=== PATIENT | male | born 1990 | race Caucasian/White ===

== ENCOUNTER 2020-09-24 10:44 | Emergency (ER) | payer MEDICAID, OTHER, SELFPAY ==
[~2020-09-24] VITALS: Ht 167.6 cm; Wt 90.0 kg
[2020-09-24 11:27] LABS: BASOPHILS % (AUTO) 1 % (0-1); EOSINOPHILS % (AUTO) 1 % (1-7); LYMPHOCYTES % (AUTO) 26 % (22-44); MEAN CORPUSCULAR HGB CONC 34.3 g/dL (33.2-36.2); MEAN PLATELET VOLUME 8.8 fL (7.4-10.4); MONOCYTES % (AUTO) 9 % (2-9); NEUTROPHILS % (AUTO) 64 % (42-75); PLATELET COUNT 228 x10^3/uL (130-400); RED CELL DISTRIBUTION WIDTH 13.1 % (9.4-14.8)
[2020-09-24 11:28] LABS: MD NO
--- NOTE | 2020-09-24 11:30 | NUR ---
PT PLACED ON ALL ROOM MONITORING. VSS/UPDATED IN COMPUTER. WARM BLANKET PROVIDED, CALL LIGHT WITHIN REACH.
[2020-09-24 11:37] LABS: ALBUMIN 4.3 g/dL (3.4-5.0); CALCIUM 9.1 mg/dL (8.5-10.1); CHLORIDE 103 mmol/L (98-107); CREATININE 1.03 mg/dL (0.7-1.3)
[2020-09-24] MEDS ORDERED: PROMETHAZINE 25 MG/ML, 1ML ONE (11:39)
[2020-09-24] MEDS ORDERED: KETOROLAC 30 MG/1 ML ONE (11:40)
[2020-09-24 11:47] LABS: ANION GAP 6 mmol/L (5-15)
--- NOTE | 2020-09-24 11:47 | NUR ---
PT MEDICATED FOR 4/10 [place]MON[place], SLIGHT NAUSEA. VSS. PT REQUESTING COVID TEST, ERP NOTIFIED. CALL LIGHT WITHIN REACH. AWAITING LAB RESULTS.
[2020-09-24] MEDS ORDERED: KETOROLAC 30 MG/1 ML IM ONE (12:00)
[2020-09-24] MEDS ORDERED: PROMETHAZINE 25 MG/ML, 1ML IM ONE (12:00)
--- NOTE | 2020-09-24 12:00 | NUR ---
LAB RESULTS BACK, PT FOR RECHECK.
[2020-09-24 13:19] VITALS: BP 121/68
== END 2020-09-24 13:52 | disposition home or self-care (01) ==
LOC: ED 13:25
DX: R51.9 Headache, unspecified (principal); Z20.822 Contact with and (suspected) exposure to COVID-19; R42 Dizziness and giddiness; M54.2 Cervicalgia; R00.2 Palpitations; F17.200 Nicotine dependence, unspecified, uncomplicated
CPT/HCPCS: 36415; 70450; 80048; 82040; 84443; 85025; 93005; 96372; 99285; J1885; J2550; U0003